=== PATIENT | male | born 1970 | race Caucasian/White ===

== ENCOUNTER 2016-08-05 13:13 | Emergency (ER) | payer SELFPAY ==
[2016-08-05 14:03] LABS: BASOPHILS 0.1 % (0.0-2.0); EOSINOPHILS 0 % (0-7); HEMATOCRIT 44.6 % (42.0-54.0); HEMOGLOBIN 15.4 g/dL (13.5-17.5); IMMATURE GRANULOCYTES 0.3 % (0-5); LYMPHOCYTES 11.4 % (15-50); MCH 34.1 pg (26.0-34.0); MCHC 34.5 g/dL (31.0-37.0); MCV 98.9 fL (80.0-100.0); MEAN PLATELET VOLUME 9.6 fL (7.4-10.4); MONOCYTES 3.2 % (2-11); PLATELET COUNT 277 10x3/uL (130-400); RBC 4.51 10x6/uL (4.20-6.10); RDW 12.8 % (11.5-14.5); WBC 10.1 10x3/uL (4.8-10.8)
[2016-08-05 14:25] LABS: ALBUMIN 4.5 g/dL (3.4-5.0); ALKALINE PHOSPHATASE 63 U/L (46-116); ALT (SGPT) 28 U/L (10-68); BILIRUBIN - TOTAL 0.54 mg/dL (0.2-1.3); CALC OSMOLALITY 279 mosm/kg (275-300); CALCIUM 9.4 mg/dL (8.5-10.1); CARBON DIOXIDE 23.6 mmol/L (21.0-32.0); CHLORIDE - SERUM 103 mmol/L (98-107); CREATININE - SERUM 0.8 mg/dL (0.6-1.3); POTASSIUM - SERUM 4.1 mmol/L (3.5-5.1); PROTEIN - SERUM 7.5 g/dL (6.4-8.2); SODIUM 139 mmol/L (136-145); UREA NITROGEN 12 mg/dL (7-18); eGFR NON AFRICAN AMERICAN > 90 mL/min (90-120)
[2016-08-05 14:26] LABS: GLUCOSE 143 mg/dL (74-106)
[2016-08-05 15:15] LABS: APPEARANCE CLEAR (CLEAR); BILIRUBIN NEGATIVE (NEGATIVE); COLOR YELLOW (YELLOW); GLUCOSE NEGATIVE (NEGATIVE); KETONE MODERATE mg/dL (NEGATIVE); LEUKOCYTE ESTERASE NEGATIVE (NEGATIVE); NITRITE NEGATIVE (NEGATIVE); PROTEIN NEGATIVE (NEGATIVE); UROBILINOGEN NORMAL (NORMAL)
[2016-08-05 16:03] LABS: AMYLASE - SERUM 72 U/L (25-115); LIPASE 165 U/L (73-393)
== END 2016-08-05 18:52 | disposition home or self-care (01) ==
LOC: D.ER 13:13
PROVIDERS: Family Medicine; Nurse Practitioner Family
DX: K52.9 Noninfective gastroenteritis and colitis, unspecified (principal); R11.10 Vomiting, unspecified; R10.13 Epigastric pain; F31.9 Bipolar disorder, unspecified; F17.200 Nicotine dependence, unspecified, uncomplicated

== ENCOUNTER 2017-07-07 04:17 | Emergency (ER) | payer MEDICAID | END 2017-07-07 05:17 | disposition home or self-care (01) | LOC: D.ER 04:17 | DX: K02.9 Dental caries, unspecified (principal); K08.89 Other specified disorders of teeth and supporting structures; K05.10 Chronic gingivitis, plaque induced; F17.200 Nicotine dependence, unspecified, uncomplicated ==

== ENCOUNTER 2017-11-03 13:00 | Emergency (ER) | payer MEDICAID ==
[~2017-11-03] VITALS: Ht 190.5 cm; Wt 79.5 kg
[2017-11-03 13:07] VITALS: Ht 190.5 cm; Wt 79.5 kg
[2017-11-03 13:49] LABS: BASOPHILS 0.3 % (0-2); EOSINOPHILS 1.7 % (0-7); HEMATOCRIT 45.2 % (42.0-54.0); HEMOGLOBIN 15.9 g/dL (13.5-17.5); IMMATURE GRANULOCYTES 0.2 % (0-5); LYMPHOCYTES 25.6 % (15-50); MCH 34.6 pg (26.0-34.0); MCHC 35.2 g/dL (31.0-37.0); MCV 98.3 fL (80.0-100.0); MEAN PLATELET VOLUME 9.1 fL (7.4-10.4); MONOCYTES 9.7 % (2-11); NEUTROPHILS 62.5 % (40-80); PLATELET COUNT 261 10x3/uL (130-400); RDW 12.5 % (11.5-14.5); WBC 10.3 10x3/uL (4.8-10.8)
[2017-11-03 14:00] VITALS: BP 129/92
[2017-11-03 14:08] LABS: ALBUMIN 4.2 g/dL (3.4-5.0); ALKALINE PHOSPHATASE 104 U/L (46-116); ALT (SGPT) 31 U/L (10-68); CALC OSMOLALITY 280 mosm/kg (275-300); CALCIUM 10.2 mg/dL (8.5-10.1); CARBON DIOXIDE 30.2 mmol/L (21.0-32.0); CHLORIDE - SERUM 100 mmol/L (98-107); CREATININE - SERUM 1.5 mg/dL (0.6-1.3); POTASSIUM - SERUM 4.2 mmol/L (3.5-5.1); PROTEIN - SERUM 7.8 g/dL (6.4-8.2); SODIUM 139 mmol/L (136-145); UREA NITROGEN 22 mg/dL (7-18); eGFR NON AFRICAN AMERICAN 53 mL/min (90-120)
[2017-11-03 14:09] LABS: GLUCOSE 92 mg/dL (74-106)
[2017-11-03 14:28] LABS: CREATINE KINASE 275 UL (21-232); THYROID STIMULATING HORMONE 0.79 uIU/mL (0.36-3.74); TROPONIN-I < 0.017 ng/mL (0.000-0.060)
[2017-11-03 14:30] LABS: C-REACTIVE PROTEIN < 0.2 mg/dL (0.0-0.9); CKMB 2.9 U/L (0.0-3.6)
== END 2017-11-03 15:36 | disposition home or self-care (01) ==
LOC: D.ER 13:00
PROVIDERS: Family Medicine
DX: E86.0 Dehydration (principal); R55 Syncope and collapse; F17.200 Nicotine dependence, unspecified, uncomplicated

== ENCOUNTER 2018-08-26 14:03 | Emergency (ER) | payer MEDICAID ==
[~2018-08-26] VITALS: Ht 190.5 cm; Wt 81.8 kg
[2018-08-26 14:04] VITALS: Ht 190.5 cm; Wt 81.8 kg
[2018-08-26 14:27] LABS: BASOPHILS 0.1 % (0-2); EOSINOPHILS 0 % (0-7); HEMATOCRIT 46.6 % (42.0-54.0); HEMOGLOBIN 16.5 g/dL (13.5-17.5); IMMATURE GRANULOCYTES 0.1 % (0-5); LYMPHOCYTES 6.9 % (15-50); MCH 34.3 pg (26.0-34.0); MCHC 35.4 g/dL (31.0-37.0); MCV 96.9 fL (80.0-100.0); MEAN PLATELET VOLUME 9.2 fL (7.4-10.4); MONOCYTES 2.9 % (2-11); PLATELET COUNT 308 10x3/uL (130-400); RBC 4.81 10x6/uL (4.20-6.10); RDW 12.9 % (11.5-14.5); WBC 13.3 10x3/uL (4.8-10.8)
[2018-08-26 14:50] LABS: ALBUMIN 4.6 g/dL (3.4-5.0); ALKALINE PHOSPHATASE 85 U/L (46-116); ALT (SGPT) 35 U/L (10-68); AMYLASE - SERUM 90 U/L (25-115); BILIRUBIN - TOTAL 0.49 mg/dL (0.2-1.3); CALC OSMOLALITY 279 mosm/kg (275-300); CALCIUM 9.6 mg/dL (8.5-10.1); CARBON DIOXIDE 24.5 mmol/L (21.0-32.0); CHLORIDE - SERUM 100 mmol/L (98-107); CREATININE - SERUM 0.8 mg/dL (0.6-1.3); LIPASE 338 U/L (73-393); POTASSIUM - SERUM 3.8 mmol/L (3.5-5.1); PROTEIN - SERUM 8.7 g/dL (6.4-8.2); SODIUM 138 mmol/L (136-145); UREA NITROGEN 19 mg/dL (7-18); eGFR NON AFRICAN AMERICAN > 90 mL/min (90-120)
[2018-08-26 14:51] LABS: GLUCOSE 142 mg/dL (74-106)
[2018-08-26 15:54] LABS: APPEARANCE CLEAR (CLEAR); BILIRUBIN NEGATIVE (NEGATIVE); COLOR YELLOW (YELLOW); GLUCOSE NEGATIVE (NEGATIVE); KETONE LARGE mg/dL (NEGATIVE); NITRITE NEGATIVE (NEGATIVE); PROTEIN 1+ mg/dL (NEGATIVE); UROBILINOGEN NORMAL (NORMAL)
[2018-08-26 15:56] LABS: BACTERIA MODERATE /hpf (NONE SEEN); EPITHELIAL CELLS 0-5 /hpf (0-5); MUCUS >1+ /lpf (NONE SEEN); RED CELLS - URINE 0-5 /hpf (0-5); WHITE CELLS - URINE 0-5 /hpf (0-5)
[2018-08-26] MEDS ORDERED: ZOFRAN8 MG PO (17:08)
[2018-08-26 17:44] VITALS: BP 116/92
== END 2018-08-26 17:41 | disposition home or self-care (01) ==
LOC: D.ER 14:03
PROVIDERS: Emergency Medicine
DX: R10.32 Left lower quadrant pain (principal); N28.9 Disorder of kidney and ureter, unspecified; R11.2 Nausea with vomiting, unspecified

== ENCOUNTER 2018-09-30 09:39 | Observation (INO) | payer MEDICAID ==
[2018-09-30] VITALS (7 sets, daily range): BP systolic 166–208; BP diastolic 88–129; BMI 22.5
[~2018-09-30] VITALS: Ht 190.5 cm; Wt 81.6 kg
[~2018-09-30 09:39] MED LIST: ZOFRAN8 MG PO
[2018-09-30 10:18] LABS: BASOPHILS 0.2 % (0-2); EOSINOPHILS 0.5 % (0-7); HEMATOCRIT 42.4 % (42.0-54.0); HEMOGLOBIN 14.5 g/dL (13.5-17.5); IMMATURE GRANULOCYTES 0.3 % (0-5); LYMPHOCYTES 13.2 % (15-50); MCH 33.8 pg (26.0-34.0); MCHC 34.2 g/dL (31.0-37.0); MCV 98.8 fL (80.0-100.0); MEAN PLATELET VOLUME 9.1 fL (7.4-10.4); MONOCYTES 5.3 % (2-11); NEUTROPHILS 80.5 % (40-80); PLATELET COUNT 335 10x3/uL (130-400); RBC 4.29 10x6/uL (4.20-6.10); RDW 12.8 % (11.5-14.5)
[2018-09-30 10:25] LABS: ALBUMIN 3.8 g/dL (3.4-5.0); ALKALINE PHOSPHATASE 78 U/L (46-116); ALT (SGPT) 37 U/L (10-68); CALC OSMOLALITY 277 mosm/kg (275-300); CALCIUM 9.1 mg/dL (8.5-10.1); CARBON DIOXIDE 27.1 mmol/L (21.0-32.0); CHLORIDE - SERUM 102 mmol/L (98-107); CREATININE - SERUM 0.9 mg/dL (0.6-1.3); GLUCOSE 119 mg/dL (74-106); POTASSIUM - SERUM 3.6 mmol/L (3.5-5.1); PROTEIN - SERUM 7.3 g/dL (6.4-8.2); SODIUM 139 mmol/L (136-145); UREA NITROGEN 11 mg/dL (7-18); eGFR NON AFRICAN AMERICAN > 90 mL/min (90-120)
--- NOTE | 2018-09-30 10:27 | NUR ---
MANUAL BP 242/158, DOUBLE CHECKED BY THIS NURSE. TREATING PROVIDER NOTIFIED IMMEDIATELY.
[2018-09-30 10:28] LABS: AMYLASE - SERUM 76 U/L (25-115); LIPASE 164 U/L (73-393); TROPONIN-I < 0.017 ng/mL (0.000-0.060)
--- NOTE | 2018-09-30 10:42 | NUR ---
PT FIRST C/O PAIN TO THE EPIGASTRIC REGION, NOW C/O UPPER BACK AND CENTER CP. TREATING PROVIDER NOTIFIED. THIS NURSE GIVEN VERBAL ORDER FOR PROTONIX 40MG IVP.
[2018-09-30 10:52] LABS: CKMB 0.8 U/L (0.0-3.6); CREATINE KINASE 109 UL (21-232); MAGNESIUM - SERUM 1.8 mg/dL (1.8-2.4)
--- NOTE | 2018-09-30 11:18 | NUR ---
MULTIPLE BLANKETS PROVIDED REQUESTED AND LIGHTS DIMMED FOR COMFORT. FAMILY MEMBER NOW AT THE BEDSIDE. CALL LIGHT IN REACH. PT PROVIDED WITH URINAL ONCE HE ARRIVED IN ED ROOM E11 AND ASKED TO PROVIDE URINE SAMPLE FOR ORDERED LAB[facility]. PT REMINDED AT THIS TIME THAT URINE SAMPLE NEEDED.
--- NOTE | 2018-09-30 11:25 | NUR ---
PT LEFT THE ED FOR ORDERED CT SCAN VIA STRETCHER AT THIS TIME.
--- NOTE | 2018-09-30 12:03 | NUR ---
URINE SAMPLE SENT TO THE LAB AT THIS TIME, COLLECTED VIA CLEAN CATCH.
[2018-09-30 12:23] LABS: APPEARANCE CLEAR (CLEAR); BILIRUBIN NEGATIVE (NEGATIVE); COLOR STRAW (YELLOW); GLUCOSE NEGATIVE (NEGATIVE); KETONE NEGATIVE (NEGATIVE); NITRITE NEGATIVE (NEGATIVE); PROTEIN NEGATIVE (NEGATIVE); SPECIFIC GRAVITY 1.005 (1.005-1.020); UROBILINOGEN NORMAL (NORMAL)
--- NOTE | 2018-09-30 17:44 | NUR ---
SCD'S ON NO NEEDS AT THIS TIME. WILL CONTINUE TO MONITOR
[2018-10-01] VITALS: BP 177/93
--- NOTE | 2018-10-01 01:17 | NUR ---
RESTING IN BED NO S/S OF DISTRESS CALL LIGHT IN REACH.
[2018-10-01 04:00] VITALS: BP 125/80
--- NOTE | 2018-10-01 05:12 | NUR ---
PATIENT STATED THAT HE HAD 2BM'S THIS SHIFT . DID NOT INFORM STAFF. CLEAN HAT LEFT IN BATHROOM EDUCATED PATIENT TO CALL STAFF WITH NEX BM.
[2018-10-01 06:19] LABS: BASOPHILS 0.1 % (0-2); EOSINOPHILS 0.2 % (0-7); HEMATOCRIT 44.4 % (42.0-54.0); HEMOGLOBIN 15.4 g/dL (13.5-17.5); IMMATURE GRANULOCYTES 0.3 % (0-5); LYMPHOCYTES 14.4 % (15-50); MCH 33.6 pg (26.0-34.0); MCHC 34.7 g/dL (31.0-37.0); MCV 96.9 fL (80.0-100.0); MONOCYTES 7.4 % (2-11); NEUTROPHILS 77.6 % (40-80); PLATELET COUNT 361 10x3/uL (130-400); RBC 4.58 10x6/uL (4.20-6.10); RDW 12.8 % (11.5-14.5)
[2018-10-01 06:35] LABS: CALC OSMOLALITY 280 mosm/kg (275-300); CALCIUM 9.1 mg/dL (8.5-10.1); CARBON DIOXIDE 29.3 mmol/L (21.0-32.0); CHLORIDE - SERUM 103 mmol/L (98-107); CREATININE - SERUM 0.8 mg/dL (0.6-1.3); GLUCOSE 109 mg/dL (74-106); POTASSIUM - SERUM 3.7 mmol/L (3.5-5.1); SODIUM 141 mmol/L (136-145); UREA NITROGEN 9 mg/dL (7-18); eGFR NON AFRICAN AMERICAN > 90 mL/min (90-120)
[2018-10-01 08:04] VITALS: BP 134/55
--- NOTE | 2018-10-01 09:00 | NUR ---
ALERT AND ORIENTEDX3. BS NOTEDX4. HRRRR. PT C/O OF NAUSEA AND INFORMED WOULD GIVE ZOFRAN PRN. IVF INFUSING AT PRESECRIBED RATE. ENCOURAGED TO USE CALL LIGHT FOR ASSSIT. UP AB DIANNA
[2018-10-01 13:09] VITALS: BP 115/70
[2018-10-01 13:18] VITALS: Ht 190.5 cm; Wt 81.6 kg
--- NOTE | 2018-10-01 16:42 | EC ---
PATIENT:LANIE DORMAN DATE OF SERVICE: 09/30/18 SEX: M MEDICAL RECORD: [id number] DATE OF : 70 LOCATION:[facility] AGE OF PATIENT: 48 ADMISSION DATE: 09/30/18 REFERRING PHYSICIAN: INTERPRETING PHYSICIAN: ASHA MERINO MD ECHOCARDIOGRAM REPORT ECHO CHARGES 4 ECHO COMPLETE Date: 10/01/18 CLINICAL DIAGNOSIS: R/O VEGETATION ECHOCARDIOGRAPHIC MEASUREMENTS (adult normal given) AC root (d.<3.7cm) 3.7 cm LV Septum d (<1.2 cm> 1.2 cm Valve Excursion 2.4 cm LV Septum (systole) 2.1 cm Left Atria (s.<4.0cm> 3.9 cm LVPW d(<1.2cm) 1.2 cm RV (d.<2.3cm) 3.0 cm LVPW (sytole) 2.1 cm LV diastole(<5.6CM) 6.3 cm MV E-F(>70mm/sec) cm LV systole 3.7 cm LVOT Diameter 2.0 cm MV exc.(>10mm) cm Est.ejection fraction (50-75%) % DOPPLER: LVIT cm/sec A 57.0 cm/sec E 87.0 cm/sec LA cm/sec RVSP 26.3 mmHg LVOT 104 cm/sec AOP1/2T m/s Asc. Ao 160 cm/sec RVOT 62.0 cm/sec RA cm/sec PA 101 cm/sec AV Gradient Peak 10.3 mmHg AV Mean 4.7 mmHg AV Area 2.2 cm MV Gradient Peak 2.4 mmHg MV Mean 1.1 mmHg MV Area cm COMMENTS: Postpartum Rn: Nichole GUEVARA Graphic Arts Technician: 1 Dr. Merino TAPE# PACS Pericardial Effusion N DATE OF SERVICE: 10/01/2018 PROCEDURE: Echocardiogram. FINDINGS: 1. Left ventricular chamber size is mildly dilated. Left ventricular systolic function is preserved at 55%. 2. Left atrium, right atrium, and right ventricular chamber sizes are within normal limits. 3. Valvular structures have normal structure and motion. No evidence of ECHOCARDIOGRAM REPORT [id number] LANIE DORMAN vegetative endocarditis. 4. Doppler interrogation reveals trace tricuspid regurgitation, no other valvular insufficiency or stenosis. Pulmonary systolic pressure is estimated at 26 mmHg. 5. No evidence of pericardial effusion or left ventricular thrombus. TRANSINT:[id number] Voice Confirmation ID: [id number] DOCUMENT ID: [id number] ASHA MERINO MD at 1642 CC: [id number] DICTATION DATE: 10/01/18 1335 LEAD PORTFOLIO MANAGER: 10/01/18 1422 ADM IN [facility] [address] [id number]
[2018-10-01 17:20] LABS: UDS - AMPHET NEGATIVE QUAL (NEGATIVE); UDS - BARB NEGATIVE QUAL (NEGATIVE); UDS - BENZO POSITIVE QUAL (NEGATIVE); UDS - COCAINE NEGATIVE QUAL (NEGATIVE); UDS - OPIATE POSITIVE QUAL (NEGATIVE); UDS - PCP NEGATIVE QUAL (NEGATIVE); UDS - THC POSITIVE QUAL (NEGATIVE)
--- NOTE | 2018-10-01 17:31 | NUR ---
PT AGITATED WITH EX-GIRLFRIEND HEREAND VERBALIZED NEEDING BACK ON HIS DEPAKOTE. MD NOTIFIED WITH NEW ORDER NOTED. PT REDIRECTED AND CALM AT THIS TIME
--- NOTE | 2018-10-01 19:30 | NUR ---
RECEIVED REPORT, ASSUMED CARE, CALL LIGHT IN REACH, BED LOWEST POSITION, DENIES NEEDS, A&O, ASSESSMENT COMPLETE, WILL CONTINUE TO MONITOR
[2018-10-01 20:00] VITALS: BP 13/73
[2018-10-02 03:00] VITALS: BP 129/61
--- NOTE | 2018-10-02 05:35 | NUR ---
I have reviewed this patient and I concur with the Shift Assessment completed by the Licensed Practical Nurse today this shift.
[2018-10-02 06:34] LABS: BASOPHILS 0.4 % (0-2); EOSINOPHILS 1.3 % (0-7); HEMATOCRIT 43.2 % (42.0-54.0); HEMOGLOBIN 14.6 g/dL (13.5-17.5); IMMATURE GRANULOCYTES 0.1 % (0-5); LYMPHOCYTES 31.3 % (15-50); MCH 33.7 pg (26.0-34.0); MCHC 33.8 g/dL (31.0-37.0); MEAN PLATELET VOLUME 9.3 fL (7.4-10.4); MONOCYTES 9.9 % (2-11); PLATELET COUNT 312 10x3/uL (130-400); RBC 4.33 10x6/uL (4.20-6.10)
[2018-10-02 06:36] LABS: MCV 99.8 fL (80.0-100.0); WBC 6.8 10x3/uL (4.8-10.8)
[2018-10-02 07:05] LABS: CALC OSMOLALITY 278 mosm/kg (275-300); CALCIUM 8.5 mg/dL (8.5-10.1); CARBON DIOXIDE 27.5 mmol/L (21.0-32.0); CHLORIDE - SERUM 105 mmol/L (98-107); CREATININE - SERUM 0.8 mg/dL (0.6-1.3); GLUCOSE 84 mg/dL (74-106); POTASSIUM - SERUM 3.8 mmol/L (3.5-5.1); SODIUM 141 mmol/L (136-145); UREA NITROGEN 11 mg/dL (7-18); eGFR NON AFRICAN AMERICAN > 90 mL/min (90-120)
[2018-10-02 09:09] VITALS: BP 188/100
--- NOTE | 2018-10-02 09:10 | NUR ---
ALERT AND ORIENTED X3. PT NPO PENDING EGD. IV RESTARTED TO LT. HAND WITH IVF INFUSING AT PRESCRIBED RATE. NO C/O AT THIS TIME. ENCOURAGED TO USE CALL LIGHT FOR ASSSIT. BS NOTED X4.
--- NOTE | 2018-10-02 11:57 | NUR ---
PT LEAVING FOR PRODEDURE AND STABLE AT TIME OF DEPARTURE WITH STAFF.
--- NOTE | 2018-10-02 14:59 | NUR ---
PT RETURNED TO ROOM POST PROCEDURE WITH COMPLAINTS OF NAUSEA AND ABDOMINAL PAIN. TRAMADOL AND ZOFRAN GIVEN PER ORDER.
[2018-10-02] MEDS ORDERED: NORVASC10 MG PO (15:40)
[2018-10-02] MEDS ORDERED: PROTONIX40 MG PO (15:41)
[2018-10-02] MEDS ORDERED: DEPAKOTE ER500 MG PO (15:58)
--- NOTE | 2018-10-02 17:05 | NUR ---
PT IV DISCONTINUED AND VERBALIZED UNDERSTANDING OF DISCHARGE INSTRUCTIONS. STABLE AT TIME OF DEPARTURE AND LIFT UNDER CARE OF FRIEND VIA POV.
== END 2018-10-02 17:05 | disposition home or self-care (01) ==
LOC: D.ER 09:39 → OBSVTIME 13:19 → D.EDHOLD 13:19 → D.MS 13:19
PROVIDERS: Family Medicine; ADMIT Internal Medicine Nephrology; ATTEND Internal Medicine Nephrology
DX: K29.70 Gastritis, unspecified, without bleeding (principal); K29.80 Duodenitis without bleeding; I10 Essential (primary) hypertension; K21.9 Gastro-esophageal reflux disease without esophagitis; F10.10 Alcohol abuse, uncomplicated; F15.10 Other stimulant abuse, uncomplicated; F12.10 Cannabis abuse, uncomplicated; F17.213 Nicotine dependence, cigarettes, with withdrawal; F32.9 Major depressive disorder, single episode, unspecified; F43.10 Post-traumatic stress disorder, unspecified; R91.1 Solitary pulmonary nodule

== ENCOUNTER 2019-04-09 12:40 | Emergency (ER) | payer OTHER ==
[~2019-04-09] VITALS: Ht 190.5 cm; Wt 74.5 kg
[~2019-04-09 12:40] MED LIST changes: +DEPAKOTE ER500 MG PO; +NORVASC10 MG PO; +PROTONIX40 MG PO
[2019-04-09 12:48] VITALS: Ht 190.5 cm; Wt 74.5 kg
[2019-04-09] MEDS ORDERED: ERYTHROMYCIN OPT1 GM EACH EYE (14:01)
[2019-04-09 14:08] VITALS: BP 128/79
== END 2019-04-09 14:08 | disposition home or self-care (01) ==
LOC: D.ER 12:40
DX: S05.02XA Injury of conjunctiva and corneal abrasion without foreign body, left eye, initial encounter (principal); H10.89 Other conjunctivitis; I10 Essential (primary) hypertension; Z72.0 Tobacco use; Z91.19 Patient's noncompliance with other medical treatment and regimen

== ENCOUNTER 2020-01-21 17:36 | Emergency (ER) | payer OTHER ==
[~2020-01-21] VITALS: Ht 190.5 cm; Wt 79.5 kg
[~2020-01-21 17:36] MED LIST changes: +ERYTHROMYCIN OPT1 GM EACH EYE
[2020-01-21 17:43] VITALS: BP 173/121; Ht 190.5 cm; Wt 79.5 kg
[2020-01-21 18:09] LABS: BASOPHILS 0.1 % (0-2); EOSINOPHILS 0.3 % (0-7); HEMATOCRIT 41.4 % (42.0-54.0); HEMOGLOBIN 14.1 g/dL (13.5-17.5); IMMATURE GRANULOCYTES 0.2 % (0-5); LYMPHOCYTES 12.3 % (15-50); MCH 34.1 pg (26.0-34.0); MCHC 34.1 g/dL (31.0-37.0); MCV 100.2 fL (80.0-100.0); MEAN PLATELET VOLUME 8.9 fL (7.4-10.4); MONOCYTES 8.6 % (2-11); NEUTROPHILS 78.5 % (40-80); PLATELET COUNT 298 10x3/uL (130-400); RBC 4.13 10x6/uL (4.20-6.10); RDW 13.3 % (11.5-14.5); WBC 14.8 10x3/uL (4.8-10.8)
[2020-01-21 18:17] LABS: BILIRUBIN NEGATIVE (NEGATIVE); KETONE NEGATIVE (NEGATIVE); NITRITE NEGATIVE (NEGATIVE); UROBILINOGEN NORMAL (NORMAL)
[2020-01-21 18:19] LABS: BACTERIA FEW /hpf (NONE SEEN); EPITHELIAL CELLS RARE /hpf (0-5); RED CELLS - URINE 0-5 /hpf (0-5); WHITE CELLS - URINE OCC /hpf (0-5)
[2020-01-21 18:20] LABS: CALC OSMOLALITY 277 mosm/kg (275-300); CALCIUM 8.6 mg/dL (8.5-10.1); CARBON DIOXIDE 28.1 mmol/L (21.0-32.0); CHLORIDE - SERUM 101 mmol/L (98-107); CREATININE - SERUM 1.1 mg/dL (0.6-1.3); GLUCOSE 120 mg/dL (74-106); POTASSIUM - SERUM 3.2 mmol/L (3.5-5.1); SODIUM 139 mmol/L (136-145); UREA NITROGEN 9 mg/dL (7-18); eGFR NON AFRICAN AMERICAN 75 mL/min (90-120)
[2020-01-21 18:26] LABS: ALBUMIN 3.7 g/dL (3.4-5.0); ALKALINE PHOSPHATASE 69 U/L (30-120); ALT (SGPT) 47 U/L (10-68); BILIRUBIN - TOTAL 0.59 mg/dL (0.2-1.3); PROTEIN - SERUM 7.2 g/dL (6.4-8.2)
== END 2020-01-21 21:10 | disposition left against medical advice (07) ==
LOC: D.ER 17:36
PROVIDERS: Family Medicine
DX: S20.222A Contusion of left back wall of thorax, initial encounter (principal); S10.93XA Contusion of unspecified part of neck, initial encounter; Y00.XXXA Assault by blunt object, initial encounter; Y93.9 Activity, unspecified; Y92.9 Unspecified place or not applicable; Z53.29 Procedure and treatment not carried out because of patient's decision for other reasons; I10 Essential (primary) hypertension; Z72.0 Tobacco use; R51 Headache; M54.2 Cervicalgia

== ENCOUNTER 2020-09-20 13:52 | Emergency (ER) | payer OTHER ==
[~2020-09-20] VITALS: Ht 190.5 cm; Wt 86.4 kg
[2020-09-20 14:00] VITALS: Ht 190.5 cm; Wt 86.4 kg
[2020-09-20 14:32] LABS: BASOPHILS 0.1 % (0-2); EOSINOPHILS 0 % (0-7); HEMATOCRIT 48.6 % (42.0-54.0); IMMATURE GRANULOCYTES 0.2 % (0-5); LYMPHOCYTE ABS# 0.91 10x3/uL (1.32-3.57); LYMPHOCYTES 9.1 % (15-50); MCH 34.6 pg (26.0-34.0); MCV 98.8 fL (80.0-100.0); MEAN PLATELET VOLUME 9.4 fL (7.4-10.4); NEUTROPHIL ABS# 8.43 10x3/uL (1.78-5.38); NEUTROPHILS 84.6 % (40-80); PLATELET COUNT 275 10x3/uL (130-400); RBC 4.92 10x6/uL (4.20-6.10); RDW 12.6 % (11.5-14.5)
[2020-09-20 15:24] LABS: CALC OSMOLALITY 277 mosm/kg (275-300); CALCIUM 9.8 mg/dL (8.5-10.1); CARBON DIOXIDE 26.3 mmol/L (21.0-32.0); CHLORIDE - SERUM 98 mmol/L (98-107); GLUCOSE 121 mg/dL (74-106); POTASSIUM - SERUM 3.7 mmol/L (3.5-5.1); SODIUM 137 mmol/L (136-145); UREA NITROGEN 20 mg/dL (7-18); eGFR NON AFRICAN AMERICAN 84 mL/min (90-120)
[2020-09-20 15:41] LABS: ALBUMIN 4.8 g/dL (3.4-5.0); ALKALINE PHOSPHATASE 110 U/L (30-120); ALT (SGPT) 31 U/L (10-68); AMYLASE - SERUM 63 U/L (25-115); BILIRUBIN - TOTAL 0.52 mg/dL (0.2-1.3); LIPASE 99 U/L (73-393); PROTEIN - SERUM 8.8 g/dL (6.4-8.2)
[2020-09-20 15:56] LABS: TROPONIN-I 0.002 ng/mL (0.000-0.060)
[2020-09-20] MEDS ORDERED: DICLOFENAC SODI50 MG PO (15:57)
[2020-09-20] MEDS ORDERED: BENTYL10 MG PO (15:57)
[2020-09-20] MEDS ORDERED: ZOFRAN ODT4 MG/UDTAB PO (15:57)
[2020-09-20 16:20] LABS: UDS - AMPHET NEGATIVE QUAL (NEGATIVE); UDS - BARB NEGATIVE QUAL (NEGATIVE); UDS - BENZO NEGATIVE QUAL (NEGATIVE); UDS - COCAINE NEGATIVE QUAL (NEGATIVE); UDS - OPIATE NEGATIVE QUAL (NEGATIVE); UDS - PCP NEGATIVE QUAL (NEGATIVE); UDS - THC POSITIVE QUAL (NEGATIVE)
[2020-09-20 16:26] LABS: BILIRUBIN NEGATIVE (NEGATIVE); KETONE MODERATE mg/dL (NEGATIVE); NITRITE NEGATIVE (NEGATIVE); UROBILINOGEN NORMAL mg/dL (< 2); WHITE CELLS - URINE 0-5 HPF (0-1)
[2020-09-20 16:27] LABS: BACTERIA FEW HPF (NONE SEEN); SQUAMOUS EPITHELIAL NONE SEEN HPF (0-4)
[2020-09-20 16:30] VITALS: BP 200/114
[2020-09-20] MEDS ORDERED: COZAAR50 MG PO (17:52)
== END 2020-09-20 18:18 | disposition home or self-care (01) ==
LOC: D.ER 13:52
PROVIDERS: Student in an Organized Health Care Education/Training Program
DX: R10.84 Generalized abdominal pain (principal); E86.0 Dehydration; I10 Essential (primary) hypertension; R11.2 Nausea with vomiting, unspecified; F12.10 Cannabis abuse, uncomplicated; Z72.0 Tobacco use